=== PATIENT | female | born 1950 | race Caucasian/White ===

== ENCOUNTER → 2020-10-17 | Outpatient (CLI) | payer OTHER ==
--- NOTE | 2020-10-17 12:09 | RAD ---
Left lower extremity venous duplex study 10/17/2020 Clinical History: Left lower extremity calf pain and bruising. Technique: Using a combination of real time ultrasound imaging and color-flow and pulse Doppler imaging techniques, including spectral analysis, graded compression and augmentation, duplex evaluation of the deep venous system of the left lower extremity was performed. Multiple images were obtained. Findings: There is no sonographic evidence of deep venous thrombosis involving the visualized deep venous structures of the left lower extremity Impression: No evidence of deep venous thrombosis involving the left lower extremity Electronically signed by: Denny Gibbons MD (10/17/2020 12:06 PM) [id number]
== END ==
LOC: US 11:09
PROVIDERS: ATTEND Preventive Medicine Occupational Medicine
DX: I82.462 Acute embolism and thrombosis of left calf muscular vein (principal)
CPT/HCPCS: 93971